=== PATIENT | female | born 1980 | race Two or more races ===

== ENCOUNTER 2017-02-04 22:39 | Emergency (ER) | payer SELFPAY ==
--- NOTE | 2017-02-05 19:08 | ER ---
ADMIT: 02/04/2017 RM/LOC: ER [facility] MR#: [id number] [address] [id number] [place] [address] Emergency Room Report SEX: F AGE: 37 : 1980 DATE: 02/04/2017 HISTORY OF PRESENT ILLNESS: The patient is a 37-year-old female, with a past medical history of chronic back pain and allegedly ruptured disc and status post low back surgery, came to the ER with chief complaint of low back pain. The patient states it is very similar to previous pains, but mildly increased in severity. The patient has [id number]-bivfry low back pain for years and states she has no primary care doctor and no pain specialist at the moment. The patient denies any trauma or any new weakness or numbness. The pain is in the mid-low back and radiates to bilateral posterior thighs as before. The patient denies saddle anesthesia, problem with the balance, new numbness or weakness or urinary or stool retention or incontinence. PHYSICAL EXAMINATION: HEAD and NECK: Noncontributory. CHEST: Clear bilaterally. ABDOMEN: Soft. HEART: Normal heart sounds. NEUROLOGICAL: Motor and sensory grossly normal. Gait is slow, but gait is symmetrical and the patient does not have antalgic gait. The patient can walk on tiptoes and on heels. The patient has normal peripheral pulses and has normal deep tendon reflexes bilaterally. Motor exam is grossly normal. Sensory exam is grossly normal, and the rest of the neurological exam is also grossly normal. A straight leg raise was moderately positive. EMERGENCY ROOM COURSE: Urine was positive for nitrite and 2 wbc's, and it was cloudy. The patient was negative for urine test. Pain was controlled with Percocet p.o. The patient was advised to follow up with the primary doctor for pain control and further followups. The patient was discharged to home with diagnoses of UTI, acute and chronic low back pain, with Keflex and Percocet #15 of them, p.r.n. for breakthrough pain. The patient was advised to follow up with the primary care doctor. The patient acknowledged she understood the plan and agreed to the plan. Pain was moderately controlled in the ER. The patient was discharged to home. Kirk Kaiser MD/ hemanth JOB #: [id number] CC: Kirk Kaiser MD, Attending Physician Len Murguia MD, Family Physician
== END 2017-02-05 00:30 | disposition home or self-care (01) ==
LOC: ER 22:39
DX: N39.0 Urinary tract infection, site not specified (principal); G89.29 Other chronic pain; M54.5 Low back pain; F17.210 Nicotine dependence, cigarettes, uncomplicated